=== PATIENT | male | born 1990 | race Caucasian/White ===

== ENCOUNTER 2017-10-19 12:00 | Emergency (ER) | payer MEDICAID ==
[~2017-10-19] VITALS: Ht 195.6 cm; Wt 86.2 kg
--- NOTE | 2017-10-19 12:16 | NUR ---
DR YOUNG AT BEDSIDE FOR EVALUATION.
--- NOTE | 2017-10-19 12:22 | NUR ---
Patient discharged to home in stable conditon. Written and verbal after care instructions given to patient. Patient verbalizes understanding of instructions.
== END 2017-10-19 12:24 | disposition home or self-care (01) ==
LOC: ER 12:03
DX: J02.9 Acute pharyngitis, unspecified (principal); Z88.0 Allergy status to penicillin; Z88.1 Allergy status to other antibiotic agents
CPT/HCPCS: 99283; A4663